=== PATIENT | female | born 1990 | race Two or more races ===

== ENCOUNTER 2017-08-01 10:48 | Emergency (ER) | payer OTHER ==
[~2017-08-01] VITALS: Ht 165.1 cm; Wt 65.8 kg
== END 2017-08-01 21:05 | disposition home or self-care (01) ==
LOC: ER 10:48
DX: K52.9 Noninfective gastroenteritis and colitis, unspecified (principal)

== ENCOUNTER 2020-07-04 11:07 | Emergency (ER) | payer OTHER ==
[~2020-07-04] VITALS: Ht 162.6 cm; Wt 83.0 kg
[2020-07-04] MEDS ORDERED: VITAMIN D3250 MC1 PO (16:56)
[2020-07-04] MEDS ORDERED: VITAMIN C100 MG PO (16:56)
[2020-07-04] MEDS ORDERED: ZINC GLUCONATE100 MG PO (16:56)
[2020-07-04] MEDS ORDERED: IVERMECTIN3 MG PO (16:56)
== END 2020-07-04 16:59 | disposition home or self-care (01) ==
LOC: ER 11:07
DX: B34.9 Viral infection, unspecified (principal); R05 Cough; Z20.822 Contact with and (suspected) exposure to COVID-19

== ENCOUNTER 2021-09-23 15:43 | Emergency (ER) | payer OTHER ==
[~2021-09-23] VITALS: Ht 167.6 cm; Wt 84.8 kg
[~2021-09-23 15:43] MED LIST: IVERMECTIN3 MG PO; VITAMIN C100 MG PO; VITAMIN D3250 MC1 PO; ZINC GLUCONATE100 MG PO
[2021-09-23] MEDS ORDERED: ZITHROMAX500 MG PO (18:18)
[2021-09-23] MEDS ORDERED: MEDROLPACK PO (18:18)
== END 2021-09-23 18:34 | disposition home or self-care (01) ==
LOC: ER 15:43
DX: B34.9 Viral infection, unspecified (principal); Z20.822 Contact with and (suspected) exposure to COVID-19; Z88.6 Allergy status to analgesic agent

== ENCOUNTER 2023-04-27 09:01 | Emergency (ER) | payer OTHER ==
[~2023-04-27] VITALS: Ht 167.6 cm; Wt 90.7 kg
[~2023-04-27 09:01] MED LIST changes: +MEDROLPACK PO; +NASAL MIST126 ML NASAL; +OSEL75CA PO; +ZITHROMAX500 MG PO
== END 2023-04-27 12:26 | disposition home or self-care (01) ==
LOC: ER 09:02
DX: M25.512 Pain in left shoulder (principal); Z88.6 Allergy status to analgesic agent

== ENCOUNTER 2024-01-14 13:29 | Emergency (ER) | payer OTHER ==
[~2024-01-14] VITALS: Ht 167.6 cm; Wt 84.8 kg
[2024-01-14] MEDS ORDERED: ACETAMINOPHEN 500 MG GEL..CAP PO ONE (14:30)
[2024-01-14] MEDS ORDERED: BUTALB-ACETAMI1 EACH PO (14:41)
== END 2024-01-14 15:34 | disposition home or self-care (01) ==
LOC: ER 13:30
DX: R29.818 Other symptoms and signs involving the nervous system (principal); R51.9 Headache, unspecified; Z88.6 Allergy status to analgesic agent

== ENCOUNTER → 2024-04-16 | Emergency (ER) | payer OTHER ==
[~2024-04-16] VITALS: Ht 167.6 cm; Wt 81.6 kg
[~2024-04-16] MED LIST changes: +ACETAMINOPHEN 500 MG GEL..CAP PO ONE; +BUTALB-ACETAMI1 EACH PO
== END | disposition left against medical advice (07) ==
LOC: ER 18:40
DX: Z53.21 Procedure and treatment not carried out due to patient leaving prior to being seen by health care provider (principal)